=== PATIENT | male | born 1940 | race Caucasian/White ===

== ENCOUNTER 2016-12-15 21:26 | Emergency (ER) | payer OTHER, MEDICARE ==
[2016-12-15 21:42] VITALS: BP 117/64; PULSE 62; TEMP 98; BMI 36.2
--- NOTE | 2016-12-15 21:46 | PDOC ---
Rapid Medical Evaluation Chief Complaint: Injury Time Seen by Provider: 12/15/16 21:38 Medical Evaluation: 12/15/16 21:39 I have performed a brief in-person evaluation of this patient. The patient presents with a chief complaint of: R shoulder injury s/p mechanical fall tonight. States he landed on buttocks and "jammed" R shoulder. Pt adamant that he did not hit head despite daughter saying he did. No LOC, AGOSTO, dizziness, blurry vision, n/v. H/o afib on coumadin and HTN. No CP/dizziness prior to fall. Denies any other injuries at this time Pertinent physical exam findings:Stable w/ LROM to R shoulder 2/2 pain, no swelling or deformity I have ordered the following: XR shoulder, will defer ? CT head to ED provider given conflicting history The patient will proceed to the ED for further evaluation. 12/15/16 21:43
[2016-12-15] MEDS ORDERED: ACETAMINOPHEN 325 MG TABLET (FP) PO ONE (22:24)
[2016-12-15] MEDS ORDERED: ACETAMINOPHEN 325 MG TABLET (FP) ONE (22:25)
--- NOTE | 2016-12-15 22:26 | PDOC ---
History of Present Illness - General Chief Complaint: Injury Stated Complaint: INJURY Time Seen by Provider: 12/15/16 21:38 History Source: Patient Exam Limitations: No Limitations - History of Present Illness Initial Comments: 12/15/16 22:21 76 yr female with c/o right shoulder injury after slip and fall landed on outstretched right hand. no head trauma, no back pain or dizzyness. Pt states he has limited ROM of the shoulder. Past History - Past Medical History Allergies/Adverse Reactions: Allergies Allergy/AdvReac Type Severity Reaction Status Date / Time No Known Allergies Allergy Verified 12/15/16 21:41 Cardiac Disorders: Yes (a fib) HTN: Yes - Psycho/Social/Smoking Cessation Hx Suicidal Ideation: No Smoking History: Never smoked Review of Systems - Review of Systems Able to Perform ROS?: Yes Is the patient limited Dominican proficient: No Constitutional: No: Symptoms Reported HEENTM: No: Symptoms Reported Respiratory: No: Symptoms reported Cardiac (ROS): No: Symptoms Reported ABD/GI: No: Symptoms Reported : No: Symptoms Reported Musculoskeletal: Yes: See HPI Integumentary: No: Symptoms Reported Neurological: No: Symptoms reported *Physical Exam - Vital Signs Last Vital Signs Temp Pulse Resp BP Pulse Ox 98 F 62 18 117/64 99 12/15/16 21:37 12/15/16 21:37 12/15/16 21:37 12/15/16 21:37 12/15/16 21:37 - Physical Exam General Appearance: Yes: Nourished, Appropriately Dressed HEENT: positive: EOMI, LARA Neck: positive: Supple. negative: Tender Respiratory/Chest: positive: Lungs Clear, Normal Breath Sounds Cardiovascular: positive: Regular Rhythm, Regular Rate Gastrointestinal/Abdominal: positive: Normal Bowel Sounds, Soft Musculoskeletal: positive: Normal Inspection Extremity: positive: Normal Capillary Refill, Normal Inspection, Other (pain with extension of the right shoulder, no swelling or deformity ) Integumentary: positive: Normal Color, Dry, Warm Neurologic: positive: Fully Oriented, Alert, Normal Mood/Affect, Normal Response , Motor Strength 5/5 Procedures - Splinting Post-Proc Neuro Vasc Exam: normal Sling: Yes Medical Decision Making - Medical Decision Making 12/15/16 22:23 cc: fall injured right shoulder xray done awaiting result tylenol for pain , sling to the arm *DC/Admit/Observation/Transfer Diagnosis at time of Disposition: Strain of right shoulder Qualifiers: Encounter type: initial encounter Qualified Code(s): S46.911A - Strain of unspecified muscle, fascia and tendon at shoulder and upper arm level, right arm , initial encounter - Discharge Dispostion Disposition: HOME Condition at time of disposition: Good - Patient Instructions Additional Instructions: apply ice every 2hrs for 20 minutes for the next 2 days while awake use the sling while awake remove to sleep follow with your orthopedist this week for follow up no heavy lifting or bending
== END 2016-12-15 22:49 | disposition home or self-care (01) ==
LOC: JERFT 21:26
DX: S46.811A Strain of other muscles, fascia and tendons at shoulder and upper arm level, right arm, initial encounter (principal); W01.0XXA Fall on same level from slipping, tripping and stumbling without subsequent striking against object, initial encounter; Y93.89 Activity, other specified; Y92.89 Other specified places as the place of occurrence of the external cause; Y99.8 Other external cause status; I10 Essential (primary) hypertension; I48.91 Unspecified atrial fibrillation
CPT/HCPCS: 73030-TC-RT; 99281-25

== ENCOUNTER 2017-11-11 12:16 | Day surgery (SDC) | payer OTHER, MEDICARE ==
[2017-11-10 09:44] VITALS: BMI 29.1
--- NOTE | 2017-11-11 10:22 | HP ---
[facility] - Chief Complaint Chief Complaint: left hand pain/numbness - Past Medical History Allergies/Adverse Reactions: Allergies Allergy/AdvReac Type Severity Reaction Status Date / Time No Known Allergies Allergy Verified 11/10/17 09:52 - Current Medications Current Medications: Home Medications Medication Instructions Recorded Allopurinol [Zyloprim -] 100 mg PO DAILY 11/10/17 Atorvastatin Ca [Lipitor] 10 mg PO HS 11/10/17 Mirtazapine 15 mg PO DAILY 11/10/17 Valacyclovir HCl [Valtrex -] 500 mg PO UTDICT 11/10/17 Warfarin Na [Coumadin -] 7 mg PO DAILY 11/10/17 Hydrocodone/Acetaminophen [[place] 1 each PO Q6H PRN #20 tablet MDD 4 11/11/17 5-325 Tablet] Satellite Physical Exam - Physical Examination General Appearance: Well Nourished, Well Developed, Alert & Oriented x3 ENT: Clear Lung: Normal air movement Heart: Regular rate & rhythm Extremities: Other (left hand- + tinels, + phalens emg + cts) Neurological: Intact, Alert, Oriented Satellite Impression/Plan - Impression/Plan Impression: left cts Operative Procedure: left ctr Date to be Performed: 11/11/17
[2017-11-11] MEDS ORDERED: oxyCODONE HCL 5 MG TABLET PO PRN ×2 (12:31)
[2017-11-11] MEDS ORDERED: ONDANSETRON 4 MG/2 ML VIAL IVPUSH PRN (12:31)
[2017-11-11] MEDS ORDERED: LACTATED RINGERS SOLUTION 1,000 ML IV SCH (12:45)
[2017-11-11] MEDS ORDERED: PROPOFOL 20 ML ONE (13:11)
[2017-11-11] MEDS ORDERED: MIDAZOLAM HCL 2 MG/2 ML SINGLE DOSE VIAL ONE (13:11)
[2017-11-11 13:41] LABS: INR 1.14 (0.82-1.09); PROTHROMBIN TIME (PATIENT) 12.9 SEC (9.7-13.0)
[2017-11-11] MEDS ORDERED: ceFAZolin SODIUM 1 GM VIAL ONE (14:05)
[2017-11-11] MEDS ORDERED: ceFAZolin SODIUM 1 GM VIAL IVPB ONE (14:10)
[2017-11-11] MEDS ORDERED: LIDOCAINE HCL 1%, 10 MG/ML (20ML VIAL) NR ONE (14:27)
[2017-11-11] MEDS ORDERED: BUPIVACAINE HCL/PF 0.5% (5MG/ML) 10 ML VIAL IJ ONE (14:27)
--- NOTE | 2017-11-11 14:56 | OP ---
Operative Note - Note: Operative Date: 11/11/17 Pre-Operative Diagnosis: left CTS Operation: left CTR, tenosynovectomy Post-Operative Diagnosis: Same as Pre-op Surgeon: Rodri Mims Anesthesiologist/[employer] INST[employer]ER: Juan José Mayfield Anesthesia: Local, MAC Specimens Removed: tenosynovium Estimated Blood Loss (mls): 0 Drains, Volume Out (mls): 0 Blood Volume Replaced (mls): 0 Fluid Volume Replaced (mls): 500 Operative Report Dictated: Yes
--- NOTE | 2017-11-11 15:16 | SPEC ---
DATE OF OPERATION: 11/11/2017 PREOPERATIVE DIAGNOSIS: Left carpal tunnel syndrome. POSTOPERATIVE DIAGNOSIS: Left carpal tunnel syndrome. OPERATION: Left carpal tunnel release and tenosynovectomy. SURGEON: Rodri Mims M.D. ASSISTANTS: None. ANESTHESIA: MAC, local injection with 10 mL of 0.5% Marcaine and 1% Lidocaine mix. ANESTHESIOLOGIST: DRAINS: None. COMPLICATIONS: None. SPECIMENS: Tenosynovium. BLOOD LOSS: None. BLOOD GIVEN: None. FLUID REPLACEMENT: 500 mL. INDICATIONS: The patient is a 77-year-old male with the preoperative diagnosis of recurrent severe left carpal tunnel release. After understanding the potential risks, complications, alternatives and benefits of surgery versus nonsurgical treatment, the patient elected to undergo this procedure. DESCRIPTION OF PROCEDURE: The patient was brought to the operating room, peripheral IV placed and intravenous sedation was given. One gram of intravenous Ancef was given. MAC anesthesia was induced. A tourniquet was applied to the left upper arm and the left upper extremity was prepped and draped in sterile fashion. The entire case was done under 3.8 loupe magnification. A marking pen was utilized to tatiana out a longitudinal incision in an already existing skin crease. Twenty mL of 0.5% Marcaine mixed with 1% Lidocaine was injected in and around the surgical incision. The left upper extremity was elevated, exsanguinated with an Esmarch bandage and the tourniquet inflated to 250 mmHg. A No. 15 scalpel blade was utilized to cut down through the skin. Subcutaneous hemostasis was achieved with the bipolar cautery. Dissection was done through the superficial palmar fascia. Self-retaining retractors were placed into the wound. Under direct visualization, the transverse carpal ligament was transected with a No. 15 scalpel blade, exposing the median nerve and the contents of the carpal tunnel. The distal and proximal extents of the release were completed with a Littler scissor and checked with irrigation and my small finger. They were seen to be complete. Limited dissection was done on the radial side of the median nerve and more extensive dissection was done on the ulnar side of the median nerve. The patients nerve was seen to be quite compressed by epineurium and therefore a limited epineurotomy was performed. A Ragnell retractor was used to gently retract the median nerve in a radial direction. The patient had a lot of tenosynovitis and therefore a tenosynovectomy was performed off all 9 flexor tendons. This was passed off the field as tenosynovium left wrist. The floor of the carpal tunnel was checked. There were no abnormal masses or ganglion cysts. The area was copiously irrigated and washed out and closure begun. Undyed 4-0 Vicryl was used to close the deep dermal layer. Final skin reapproximation was done with horizontal mattress 4-0 nylon sutures. The area was then washed and dried, covered with Xeroform, 4x4s, fluffs between the fingers, Webril and a 4-inch plaster roll was utilized to make a volar splint, which was then wrapped with Claudia and Coban. The tourniquet was taken down after a total tourniquet time of minutes. There were no complications during the case. The patient tolerated the procedure well and was brought to the ambulatory recovery room in stable condition. Monse [id number]
[2017-11-11 16:30] VITALS: BP 126/66; PULSE 77; TEMP 97.4
--- NOTE | 2017-11-13 17:56 | PATH ---
Surgical Pathology Report Patient Name: NIDA GALVIN [facility]. Rec. #: [id number] /Age/Gender: 1940 (Age: 77) / M Account: [id number] Location: [facility] Taken: 11/11/2017 Received: 11/12/2017 Reported: 11/13/2017 Physicians: Rodri Mims M.D. Specimen(s) Received TENOSYNOVIUM Clinical History Carpal tunnel syndrome Final Diagnosis TENOSYNOVIUM, LEFT, CARPAL TUNNEL RELEASE: BENIGN FIBROCONNECTIVE TISSUE. Electronically Signed Deepali Maza M.D. Gross Description Received in formalin labeled "tenosynovium," is a 2.3 x 1.8 x 0.3 cm aggregate of paz-yellow, irregular portions of soft tissue, consistent with tenosynovium. The specimen is entirely submitted in one cassette. /11/12/201711/12/2017
== END 2017-11-11 16:35 | disposition home or self-care (01) ==
LOC: JASU-SURG 12:16
PROVIDERS: ATTEND Orthopaedic Surgery
PROC: 01N50ZZ Release Median Nerve, Open Approach (ICD-10-PCS; principal; 2017-11-11 13:30)
DX: G56.02 Carpal tunnel syndrome, left upper limb (principal); I10 Essential (primary) hypertension; I48.91 Unspecified atrial fibrillation; C90.00 Multiple myeloma not having achieved remission; Z92.21 Personal history of antineoplastic chemotherapy
CPT/HCPCS: 36415; 85610; 94760